=== PATIENT | male | born 1960 | race Caucasian/White ===

== ENCOUNTER 2022-12-31 15:39 | Outpatient (CLI) | payer OTHER, SELFPAY ==
--- NOTE | ~2022-12-31 | XR_ITS ---
EXAM: XR elbow LT min 3V DATE: 12/31/2022 16:06 HISTORY: M25.522 - Pain in left elbow/FALL . COMPARISON: None available. FINDINGS: Normal mineralization. No fracture or dislocation. No lytic or blastic lesion. Mild narrow ing and osteophytosis in the elbow joint. Medial and lateral enthesopathy. No erosion or periosteal c hange. Soft tissues within normal limits. IMPRESSION: Mild left elbow osteoarthritis and enthesopathy. No acute osseous finding in the left elb ow. Reviewed, dictated and finalized at location [facility]. IMPRESSION: Mild left elbow osteoarthritis and enthesopathy. No acute osseous f inding in the left elbow.
[2022-12-31 16:06] LABS: Hematocrit 37.1 % (40.0-54.0); Mean Corpuscular Hemoglobin 30.7 pg (27.0-31.0); Mean Corpuscular Volume 87.5 fL (78.0-102.0); Platelet Count Result 276 K/mm3 (150-420); Red Blood Count 4.24 M/mm3 (4.70-6.10); Red Cell Distribution Width 13.6 % (11.6-14.4); White Blood Count 5.4 K/mm3 (4.8-10.8)
[2022-12-31 16:39] LABS: Alanine Aminotransferase 57 U/L (16-63); Albumin Level 3.7 g/dL (3.4-5.0); Alkaline Phosphatase 49 U/L (46-116); Anion Gap 12 mmol/L (8-16); Aspartate Amino Transferase 41 U/L (15-37); Bilirubin,Total 0.4 mg/dL (0.00-1.00); Blood Urea Nitrogen 7 mg/dL (7-18); Calcium 8.9 mg/dL (8.5-10.1); Carbon Dioxide 24 mmol/L (21-32); Chloride 97 mmol/L (98-108); Cholesterol 135 mg/dL (0-200); Estimated Glomerular Filt Rate > 60; Glucose 91 mg/dL (70-99); HDL Direct 58 mg/dL (40-60); LDL Cholesterol Calculated 55 mg/dL (<130); Osmolality Calculated 274 mOsm/kg (285-295); Sodium 133 mmol/L (136-145); Total Protein 7.1 g/dL (6.4-8.2); Triglycerides 112 mg/dL (0-150)
== END 2022-12-31 15:40 | disposition home or self-care (01) ==
PROVIDERS: PCP Family Medicine; Visit Provider Family Medicine
DX: R03.0 Elevated blood-pressure reading, without diagnosis of hypertension (principal); M25.522 Pain in left elbow
CPT/HCPCS: 36415; 73080; 80053; 80061; 85027

== ENCOUNTER 2023-09-30 16:15 | Outpatient (NON) | payer OTHER, SELFPAY | END 2023-09-30 16:16 | disposition home or self-care (01) | LOC: CHSLAB 16:16 | PROVIDERS: Visit Provider Family Medicine | DX: L57.0 Actinic keratosis (principal) | CPT/HCPCS: 88305 ==

== ENCOUNTER 2024-07-24 17:53 | Emergency (ER) | payer OTHER, SELFPAY ==
[2024-07-24] VITALS (7 sets, daily range): BP systolic 116–176; BP diastolic 77–102; PULSE 62–76; RESP 16–20; TEMP 36.3; O2SAT 95–100
--- NOTE | ~2024-07-24 | XR_ITS ---
XR chest 2V Ordering provider: Roberto Ayon MD History: 64 years Male with . Congestion . Comparison: None. FINDINGS: MEDIASTINUM: The cardiac silhouette is not enlarged. LUNGS: No infiltrates, effusions or pneumothorax. OTHER: No free air under the diaphragm. Postoperative changes in the right shoulder. Degenerative the spine. IMPRESSION: No acute cardiopulmonary pathology. Reviewed, dictated and finalized at location A. CLINICAL PROGRAMMER
--- NOTE | 2024-07-24 18:06 | ECG_ITS ---
Test Date: 2024-07-24 18:15:25 Measurements Intervals [place] Rate: 70 P: 42 AR: 189 QRS: 34 QRSD: 94 T: 44 QT: 386 QTc: 417 Interpretive Statements SINUS RHYTHM NORMAL ECG No previous ECG available for comparison Electronically Signed On 07-25-2024 08:43:13 [employer] by Fransisco Mims M.D.
[2024-07-24 18:40] LABS: Basophils Absolute Auto 0.03 K/mm3 (0.00-0.10); Basophils Percent Auto 0.4 % (0.0-1.0); Eosinophils Absolute Auto 0.04 K/mm3 (0.02-0.50); Eosinophils Percent Auto 0.5 % (1.0-6.0); Hematocrit 39.1 % (40.0-54.0); Hemoglobin 13.5 g/dL (14.0-18.0); Immature Granulocyte Absolute 0.02 K/mm3 (0.00-0.00); Immature Granulocyte Percent A 0.3 % (0.0-0.0); Lymphocytes Absolute Auto 0.88 K/mm3 (1.10-4.50); Lymphocytes Percent Auto 11.9 % (18.0-42.0); Mean Corpuscular HGB Conc 34.5 g/dL (32-36); Mean Corpuscular Hemoglobin 29.4 pg (27.0-31.0); Mean Corpuscular Volume 85.2 fL (78.0-102.0); Mean Platelet Volume 8.4 fl (8.7-11.0); Monocytes Absolute Auto 0.67 K/mm3 (0.10-0.90); Monocytes Percent Auto 9.1 % (2.0-11.0); Neutrophils Absolute Auto 5.73 K/mm3 (1.70-7.20); Neutrophils Percent Auto 77.8 % (50.0-70.0); Platelet Count Result 278 K/mm3 (150-420); Red Blood Count 4.59 M/mm3 (4.70-6.10); Red Cell Distribution Width 13.9 % (11.6-14.4); White Blood Count 7.4 K/mm3 (4.8-10.8)
--- NOTE | 2024-07-24 18:53 | PC.NURSE ---
REPORT TO KEYANA LEON
[2024-07-24 18:54] LABS: Alanine Aminotransferase 63 U/L (16-63); Alkaline Phosphatase 70 U/L (46-116); Anion Gap 13 mmol/L (4-12); Aspartate Amino Transferase 39 U/L (15-37); Bilirubin,Total 0.8 mg/dL (0.00-1.00); Blood Urea Nitrogen 9 mg/dL (7-18); Calcium 8.8 mg/dL (8.5-10.1); Carbon Dioxide 25 mmol/L (21-32); Chloride 95 mmol/L (98-108); Estimated CRCL calculation 56 ml/min; Estimated Glomerular Filt Rate > 60; Glucose 84 mg/dL (70-99); Osmolality Calculated 273 mOsm/kg (285-295); Potassium 3.7 mmol/L (3.5-5.1); Sodium 133 mmol/L (136-145); Total Protein 7.5 g/dL (6.4-8.2)
--- NOTE | 2024-07-24 18:55 | PC.NURSE ---
ASSUMED CARE. REPORT RECEIVED FROM JACKLYN RIDLEY
--- NOTE | 2024-07-24 19:22 | PC.NURSE ---
PATIENT IS RESTING ON STRETCHER. CALL LIGHT IS IN REACH. CURRENTLY DENIES ANY NEEDS
--- NOTE | 2024-07-24 19:33 | ED.GENADULT ---
HPI - General Adult General Chief complaint: Unspecified Stated complaint: head pressure Time Seen by Provider: 07/24/24 18:06 Source: patient Mode of arrival: ambulatory Limitations: no limitations History of Present Illness HPI narrative: patient presents with some frontal pressure, with a sinus pressure with a bilateral ear pressure and a feeling of some lower extremity weakness with no neurological deficits no nausea vomiting no chest pain no shortness of breath no fever chills. Symptoms started earlier today when he was getting his hair cut. Onset (ago): hour(s) Location: head Radiation: non-radiation Severity: mild Related Data Home Medications ?Medication ?Instructions ?Recorded ?Confirmed ?Last Taken ?Type omeprazole 20 mg capsule,delayed 20 mg PO DAILY 07/24/24 Unknown History release Allergies Allergy/AdvReac Type Severity Reaction Status Date / Time No Known Allergies Allergy Verified 07/24/24 18:12 Review of Systems Review of Systems: All systems reviewed & are unremarkable except as noted in HPI and below PMFSH Family History Family History Mother Meningitis spinal Social History Social History Smoking status: Never smoker Alcohol intake: current Substance use type: marijuana Lack of Transportation: No Lack of Food: Never True Current Housing: I Have Housing Concerned About Future Housing: No Difficulty Paying Gas/Electric Bills: No Difficulty Paying for Meds: No Currently Unemployed: No Education: High School Diploma/GED Occupation/Education: occupation Gender identity (if verbalized by the patient): Male Sexual Orientation (if Verbalized by the Patient): Straight or Heterosexual Exam Const: General: cooperative, healthy appearing, comfortable, no acute distress and well developed HENMT: Head: normal to inspection Ears: hearing grossly normal bilaterally Face/Nose/Sinus: Normal external nose present Face and sinus: sinus tenderness Mouth: Yes Normal oral and palatal mucosa present Eyes: General: appearance normal, both eyes and all related structures Neck: Neck: normal visual inspection, full ROM and no lymphadenopathy Chest: Chest palpation & inspection: normal inspection of the chest and normal palpation of entire chest wall Resp: Effort & Inspection: normal respiratory effort and able to speak in complete sentences Auscultation: clear to auscultation bilaterally Cardio: Jugular venous distension: no JVD Palpation: normal PMI Rate: regular rate Rhythm: regular rhythm : General: Yes bimanual renal exam normal bilaterally Skin: General skin exam: normal color and no rashes or lesions noted Course Course Emergency Course: labs reviewed sodium is mildly decreased at 133 and with sinus congestion and pressure will start azithromycin here in the emergency department 500mg p.o. 1 dose. Chest x-ray performed and reviewed with no cardiopulmonary abnormalities. Vital Signs Vital signs: Vital Signs Temperature 36.3 C L 07/24/24 17:53 Pulse Rate 76 07/24/24 17:53 Respiratory Rate 20 07/24/24 17:53 Blood Pressure 176/102 H 07/24/24 17:53 Pulse Oximetry 100 07/24/24 17:53 Oxygen Delivery Room Air 07/24/24 17:53 Temperature 36.3 C L 07/24/24 17:53 Pulse Rate 66 07/24/24 19:16 Respiratory Rate 16 07/24/24 19:16 Blood Pressure 132/83 07/24/24 19:16 Pulse Oximetry 100 07/24/24 19:16 Oxygen Delivery Room Air 07/24/24 17:53 Medical Decision Making Vital Signs Vital Signs: Vital Signs Temperature 36.3 C L 07/24/24 17:53 Pulse Rate 76 07/24/24 17:53 Respiratory Rate 20 07/24/24 17:53 Blood Pressure 176/102 H 07/24/24 17:53 Pulse Oximetry 100 07/24/24 17:53 Oxygen Delivery Room Air 07/24/24 17:53 Temperature 36.3 C L 07/24/24 17:53 Pulse Rate 66 07/24/24 19:16 Respiratory Rate 16 07/24/24 19:16 Blood Pressure 132/83 07/24/24 19:16 Pulse Oximetry 07/24/24 19:16 Oxygen Delivery Room Air 07/24/24 17:53 Lab Data 07/24/24 18:37 07/24/24 18:37 Labs: Lab Results 07/24/24 Range/Units 18:37 WBC 7.4 (4.8-10.8) K/mm3 RBC 4.59 L (4.70-6.10) M/mm3 Hgb 13.5 L (14.0-18.0) g/dL Hct 39.1 L (40.0-54.0) % MCV 85.2 (78.0-102.0) fL MCH 29.4 (27.0-31.0) pg MCHC 34.5 (32-36) g/dL RDW 13.9 (11.6-14.4) % Plt Count 278 (150-420) K/mm3 MPV 8.4 L (8.7-11.0) fl Immature Gran % (Auto) 0.3 H (0.0-0.0) % Neut % (Auto) 77.8 H (50.0-70.0) % Lymph % (Auto) 11.9 L (18.0-42.0) % [place] % (Auto) 9.1 (2.0-11.0) % Eos % (Auto) 0.5 L (1.0-6.0) % Baso % (Auto) 0.4 (0.0-1.0) % Lymph # (Auto) 0.88 L (1.10-4.50) K/mm3 [place] # (Auto) 0.67 (0.10-0.90) K/mm3 Eos # (Auto) 0.04 (0.02-0.50) K/mm3 Baso # (Auto) 0.03 (0.00-0.10) K/mm3 Abs Immat Gran (auto) 0.02 H (0.00-0.00) K/mm3 Absolute Neuts (auto) 5.73 (1.70-7.20) K/mm3 Absolute Nucleated RBC 0.00 (0.00-0.00) K/mm3 Nucleated RBC % 0.0 (0-0.0) % Sodium 133 L (136-145) mmol/L Potassium 3.7 (3.5-5.1) mmol/L Chloride 95 L (98-108) mmol/L Carbon Dioxide 25 (21-32) mmol/L Anion Gap 13 H (4-12) mmol/L BUN 9 (7-18) mg/dL Creatinine 1.19 (0.70-1.30) mg/dL Estim Creat Clear Calc 56 ml/min Estimated GFR > 60 (59 - ) Glucose 84 (70-99) mg/dL Calculated Osmolality 273 L (285-295) mOsm/kg Calcium 8.8 (8.5-10.1) mg/dL Total Bilirubin 0.8 (0.00-1.00) mg/dL AST 39 H (15-37) U/L ALT 63 (16-63) U/L Alkaline Phosphatase 70 (46-116) U/L Total Protein 7.5 (6.4-8.2) g/dL Albumin 4.0 (3.4-5.0) g/dL Critical Care Time Critical Care Time Critical Care Time: No Discharge Plan Discharge Clinical Impression: Sinusitis Qualifiers: Sinusitis location: frontal Chronicity: acute Recurrence: non-recurrent Qualified Code(s): J01.10 - Acute frontal sinusitis, unspecified Patient Disposition: Home, Self-Care Condition: Stable Instructions: Antibiotic Form, Sinusitis (ED) Additional Instructions: take medication as prescribed, and take Claritin [id number] daily x1 week. Patient Language: Korean Prescriptions: New azithromycin [Zithromax Z-Louis] 250 mg tablet See Rx Instructions .ROUTE .COMPLEX Qty: 6 0RF Rx Instructions: For 250 mg dose pack: take 500 mg today (day 1), then 250 mg for 4 days (days 2-5) Flonase Sensimist 27.5 mcg/actuation spray,suspension 2 spray intranasal DAILY Qty: 5.9 0RF Rx Instructions: into each nostril No Action omeprazole 20 mg capsule,delayed release(DR/EC) 20 mg PO DAILY Follow-up/Referrals: Fredis Ni DO [Primary Care Provider] - Time of Disposition: 19:39
[2024-07-24] MEDS: AZITHROMYCIN 250 MG TABLET 500 MG PO (19:40)
== END 2024-07-24 20:00 | disposition home or self-care (01) ==
PROVIDERS: Emergency Provider Emergency Medicine; PCP Family Medicine
DX: J01.10 Acute frontal sinusitis, unspecified (principal); F12.90 Cannabis use, unspecified, uncomplicated
CPT/HCPCS: 36415; 71046; 80053; 85025; 93005; 99283; A9270